=== PATIENT | female | born 1990 | race Hispanic/Latino ===

== ENCOUNTER 2022-07-19 00:22 | Inpatient (IN) | payer OTHER ==
[2022-07-19] MEDS ORDERED: NS w/ Oxytocin 30 units 500 ML ONE (00:57)
[2022-07-19] MEDS ORDERED: Methylergonovine 0.2 MG/ML VIAL IM PRN (00:59)
[2022-07-19] MEDS ORDERED: Carboprost 250 MCG/ML AMP IM PRN (00:59)
[2022-07-19] MEDS ORDERED: Misoprostol 200 MCG TAB PR PRN (00:59)
[2022-07-19] MEDS ORDERED: hydrALAZINE 20 MG/ML VIAL SLOW IVP PRN ×2 (00:59→01:06)
[2022-07-19] MEDS ORDERED: Lidocaine 1% (PF) 30 ML VIAL SC PRN (00:59)
[2022-07-19] MEDS ORDERED: Ondansetron PF 4 MG/2 ML Vial IVP PRN (00:59)
[2022-07-19] MEDS ORDERED: Promethazine HCl 25 MG/ML VIAL IM PRN (00:59)
[2022-07-19] MEDS ORDERED: Diphenoxylate HCl/Atropine Tablet PO PRN (00:59)
[2022-07-19] MEDS ORDERED: NS w/ Oxytocin 30 units 500 ML IV SCH (01:00)
[2022-07-19] MEDS ORDERED: Boostrix 0.5 ML (Tdap) VIAL (>/=7 yrs of age) IM ONE (01:06)
[2022-07-19] MEDS ORDERED: Bisacodyl 10 MG SUPP PR PRN (01:06)
[2022-07-19] MEDS ORDERED: Milk Of Magnesia 30 ML UDCUP PO PRN (01:06)
[2022-07-19] MEDS ORDERED: Acetaminophen 500 MG TAB PO PRN (01:07)
[2022-07-19 01:57] VITALS: BMI 29.6
[2022-07-19 02:01] LABS: Hemoglobin 12.6 g/dL (12.0-15.5); Mean Corpuscular HGB CONC 34.1 g/dL (32.0-36.0); Mean Corpuscular Hemoglobin 30.9 pg (27.0-33.0); Mean Corpuscular Volume 90.7 fl (81.6-98.3); Mean Platelet Volume 13.4 fl (7.4-10.4); Platelet Count 130 10x3/uL (150-450); RBC Distribution Width 13.7 % (11.5-14.5); Red Blood Cell (RBC) Count 4.08 10x6/uL (3.90-5.03)
[2022-07-19 02:19] LABS: HBSAg Index 0.18 S/CO (0-0.99); Hep B Surf Ag Non-Reactive S/CO (NonReactive)
[2022-07-19 02:20] LABS: Syphilis Antibody Nonreactive (Nonreactive); Syphilis Antibody Index 0.03 S/CO (<1.00 Non-Reactive)
[2022-07-19 02:22] LABS: SARS-CoV-2 NAA Rapid Test Not Detected (NotDetected)
[2022-07-19] MEDS: Ibuprofen 800 MG TAB PO SCH ×3 (11:38→21:19)
[2022-07-19] MEDS: Docusate 100 MG CAP PO SCH ×2 (11:39→21:18)
[2022-07-19] MEDS: Ferrous Sulfate 325 MG TAB PO SCH ×2 (12:13→18:59)
[2022-07-19] MEDS: Lactated Ringer's 1,000 ML IV SCH ×3 (12:13→21:18)
[2022-07-20 04:30] LABS: Hemoglobin 10.7 g/dL (12.0-15.5)
[2022-07-20] MEDS: Ibuprofen 800 MG TAB PO SCH ×2 (05:38→13:41)
[2022-07-20] MEDS: Ferrous Sulfate 325 MG TAB PO SCH (07:26)
[2022-07-20] MEDS: Lactated Ringer's 1,000 ML IV SCH (07:26)
[2022-07-20 07:35] VITALS: BP 106/58; TEMP 98.1
[2022-07-20] MEDS: Docusate 100 MG CAP PO SCH (09:12)
== END 2022-07-20 15:35 | disposition home or self-care (01) | DRG 807 ==
LOC: CSHLD/OP 00:22 → CSHLD 01:03 → CSHPP 17:08
PROVIDERS: ADMIT Student in an Organized Health Care Education/Training Program; ATTEND Student in an Organized Health Care Education/Training Program
PROC: 10E0XZZ Delivery of Products of Conception, External Approach (ICD-10-PCS; principal; 2022-07-19)
DX: O42.02 Full-term premature rupture of membranes, onset of labor within 24 hours of rupture (principal); Z37.0 Single live birth; Z20.822 Contact with and (suspected) exposure to COVID-19; Z3A.40 40 weeks gestation of pregnancy; O24.420 Gestational diabetes mellitus in childbirth, diet controlled; F32.A Depression, unspecified; O99.344 Other mental disorders complicating childbirth
CPT/HCPCS: 36415; 85014; 85018; 85027; 86780; 86850; 86900; 86901; 87340; J2590; U0002

== ENCOUNTER 2024-08-10 16:34 | Emergency (ER) | payer OTHER, SELFPAY | END 2024-08-10 17:12 | disposition home or self-care (01) | LOC: CSHERS 16:34 | DX: H66.92 Otitis media, unspecified, left ear (principal); H73.892 Other specified disorders of tympanic membrane, left ear | CPT/HCPCS: 99283 ==

== ENCOUNTER 2025-06-10 01:08 | Inpatient (IN) | payer OTHER ==
[2025-06-10] MEDS ORDERED: hydrALAZINE 20 MG/ML VIAL SLOW IVP PRN ×3 (01:20→02:22)
[2025-06-10 01:53] VITALS: BMI 33.3
[2025-06-10] MEDS ORDERED: Carboprost 250 MCG/ML AMP IM PRN (02:20)
[2025-06-10] MEDS ORDERED: Diphenoxylate HCl/Atropine Tablet PO PRN (02:20)
[2025-06-10] MEDS ORDERED: Methylergonovine 0.2 MG/ML VIAL IM PRN (02:20)
[2025-06-10] MEDS ORDERED: Tranexamic Acid 1,000 MG/10 ML VIAL IVP PRN (02:20)
[2025-06-10] MEDS ORDERED: Ondansetron PF 4 MG/2 ML Vial IVP PRN ×2 (02:20→02:22)
[2025-06-10] MEDS ORDERED: Lidocaine 1% (PF) 30 ML VIAL SC PRN (02:20)
[2025-06-10] MEDS ORDERED: Milk Of Magnesia 30 ML UDCUP PO PRN (02:22)
[2025-06-10] MEDS ORDERED: Bisacodyl 10 MG SUPP PR PRN (02:22)
[2025-06-10] MEDS ORDERED: Methylergonovine 0.2 MG TAB PO PRN (02:22)
[2025-06-10] MEDS ORDERED: Boostrix 0.5 ML (Tdap) VIAL (>/=7 yrs of age) IM ONE (02:22)
[2025-06-10 02:27] LABS: Hematocrit 36.9 % (34.9-44.5); Hemoglobin 12.5 g/dL (12.0-15.5); Mean Corpuscular Hemoglobin 30.9 pg (27.0-33.0); Mean Corpuscular Volume 91.1 fL (81.6-98.3); Platelet Count 170 10x3/uL (150-450); Red Blood Cell (RBC) Count 4.05 10x6/uL (3.90-5.03); White Blood Cell (WBC) Count 13.12 10x3/uL (3.5-10.5)
[2025-06-10] MEDS: Oxytocin 30 units/NS 500 ML 500 ML ONE ×2 (02:28→03:17)
[2025-06-10] MEDS: Methylergonovine 0.2 MG/ML VIAL ONE (02:28)
[2025-06-10] MEDS ORDERED: Oxytocin 30 units/NS 500 ML 500 ML IV SCH ×2 (02:30)
[2025-06-10 02:56] LABS: Hep B Surf Ag - L&D Non-Reactive S/CO (NonReactive)
[2025-06-10 02:58] LABS: Syphilis Antibody Index 0.08 S/CO (<1.00 Non-Reactive)
[2025-06-10] MEDS: Carboprost 250 MCG/ML AMP ONE (03:16)
[2025-06-10] MEDS: Oxytocin 10 UNITS/ML VIAL ONE (03:16)
[2025-06-10] MEDS: Lidocaine 1% (PF) 30 ML VIAL ONE (03:16)
[2025-06-10] MEDS: Tranexamic Acid 1,000 MG/10 ML VIAL ONE (03:16)
[2025-06-10] MEDS: Ibuprofen 800 MG TAB PO SCH (04:03)
[2025-06-10] MEDS: Ferrous Sulfate 325 MG TAB PO SCH (07:13)
[2025-06-11 07:44] VITALS: BP 96/54; TEMP 98.7
== END 2025-06-11 17:15 | disposition home or self-care (01) | DRG 807 ==
LOC: CSHLD/OP 01:08 → CSHLD 02:43 → CSHPP 04:25
PROVIDERS: ADMIT Emergency Medicine; ATTEND Emergency Medicine
PROC: 10E0XZZ Delivery of Products of Conception, External Approach (ICD-10-PCS; principal; 2025-06-10)
PROC: 4A1HXCZ Monitoring of Products of Conception, Cardiac Rate, External Approach (ICD-10-PCS; 2025-06-10)
DX: O48.0 Post-term pregnancy (principal); Z37.0 Single live birth; O24.420 Gestational diabetes mellitus in childbirth, diet controlled; Z79.899 Other long term (current) drug therapy; Z3A.40 40 weeks gestation of pregnancy
CPT/HCPCS: 85027; 86780; 86850; 86900; 86901; 87340; 99285; J2210; J2590; J3490